=== PATIENT | female | born 1990 | race Two or more races ===

== ENCOUNTER 2023-09-15 07:28 | Day surgery (SDC) | payer BC ==
[2023-09-15] MEDS ORDERED: Lactated Ringers 1,000 ML IV SCH ×2 (07:30→09:15)
[2023-09-15] MEDS ORDERED: propofoL 50 ML ONE (07:31)
== END 2023-09-15 09:45 | disposition home or self-care (01) ==
LOC: MW.SDS 07:28
PROVIDERS: ATTEND Surgery
DX: K62.5 Hemorrhage of anus and rectum (principal); G43.909 Migraine, unspecified, not intractable, without status migrainosus; K21.9 Gastro-esophageal reflux disease without esophagitis; E66.9 Obesity, unspecified; Z68.31 Body mass index [BMI] 31.0-31.9, adult
CPT/HCPCS: 45378; 81025; J2704; J7120